=== PATIENT | female | born 1980 | race Hispanic/Latino ===

== ENCOUNTER 2017-06-23 15:17 | Emergency (ER) | payer OTHER, SELFPAY ==
[2017-06-23 15:44] LABS: Pregnancy Test - Urine (BHCG) Negative (Negative); Pregu Control Background? CLEAR/WHITE (CLR/WHITE); Pregu Control Bar Appear? YES (CONTROL BAR); Specific Gravity Greater than 1.035 (1.002-1.036)
[2017-06-23 15:46] LABS: Clarity Cloudy (Clear)
[2017-06-23 15:47] LABS: Specific Gravity, Urine Greater than 1.035 (1.002-1.036)
[2017-06-23 15:53] LABS: WBC/HPF 21-50 HPF (0-3)
[2017-06-23 15:55] LABS: Bacteria/HPF 2+ HPF (None Seen)
[2017-06-23] MEDS ORDERED: Sulfameth/Trimethoprim DS 800-160mg TAB ONE (16:13)
== END 2017-06-23 16:20 | disposition home or self-care (01) ==
LOC: SCSER 15:17
DX: N39.0 Urinary tract infection, site not specified (principal); Z79.899 Other long term (current) drug therapy
CPT/HCPCS: 81003; 81015; 81025; 87086; 99283

== ENCOUNTER → 2019-05-30 | Outpatient (CLI) | payer OTHER ==
--- NOTE | 2019-05-30 13:20 | ULT ---
THYROID ULTRASOUND: Date: 05/30/2019 HISTORY: Thyromegaly. FINDINGS: Right lobe measures 6.7 x 2.2 x 2.1 cm. Left lobe measures 5.6 x 2.2 x 2.1 cm. Isthmus measures 0.6 cm. No focal solid or cystic nodules in either right or left lobes. IMPRESSION: Borderline to mild thyromegaly, particularly the right lobe. No evidence for discrete solid or cystic nodules. POS: RRE
== END ==
LOC: BICULT 12:30
PROVIDERS: ATTEND Internal Medicine Endocrinology, Diabetes & Metabolism
DX: E05.00 Thyrotoxicosis with diffuse goiter without thyrotoxic crisis or storm (principal)
CPT/HCPCS: 76536